=== PATIENT | male | born 1995 | race Caucasian/White ===

== ENCOUNTER 2020-06-06 05:24 | Emergency (ER) | payer OTHER ==
[2020-06-06] MEDS ORDERED: CLINDAMYCIN HC300 MG PO (06:35)
[2020-06-06] MEDS ORDERED: TORADOL 10 MG T10 MG PO (06:35)
== END 2020-06-06 07:00 | disposition home or self-care (01) ==
LOC: ER1 05:24
DX: K04.7 Periapical abscess without sinus (principal); K02.9 Dental caries, unspecified
CPT/HCPCS: 96372; 99282; J1885